=== PATIENT | female | born 1995 | race Caucasian/White ===

== ENCOUNTER 2020-03-21 11:28 | Inpatient (IN) ==
[2020-03-21] MEDS ORDERED: Famotidine 20 MG/2 ML VIAL IVP ONE (11:32)
[2020-03-21] MEDS ORDERED: Ringers Solution, Lactated 1,000 ML IVC ONE (11:32)
[2020-03-21] MEDS ORDERED: Metoclopramide 10 MG/2 ML VIAL IVP ONE (11:32)
[2020-03-21] MEDS ORDERED: Ringers Solution, Lactated 1,000 ML IVC SCH (11:45)
[2020-03-21 12:25] LABS: Amphetamine Screen,Urine Negative ng/mL (Cutoff=1000); Barbiturate Screen,Urine Negative ng/mL (Cutoff=200); Benzodiazepines Screen,Urine Negative ng/mL (Cutoff=200); Cannabinoid Screen,Urine Negative ng/mL (Cutoff = 50); Cocaine Screen,Urine Negative ng/mL (Cutoff= 300); Opiate Screen,Urine Negative ng/mL (Cutoff=300); Phencyclidine Screen,Urine Negative ng/mL (Cutoff=25)
[2020-03-21 12:39] LABS: Basophils # 0.1 K/mcL (0.0-0.2); Basophils % 0.5 %; Eosinophils # 0.1 K/mcL (0.0-0.6); Eosinophils % 0.9 %; Hematocrit 39.9 % (35.3-44.9); Immature Granulocytes % 0.4 % (0-4); Lymphocytes # 2.3 K/mcL (0.6-4.6); Lymphocytes % 22.6 %; Mean Corpuscular HGB Conc 32.6 g/dL (31.6-35.5); Mean Corpuscular Hemoglobin 26.5 pg (28.0-33.3); Mean Corpuscular Volume 81.4 fL (83.0-100.0); Mean Platelet Volume 11.2 fL (9.4-12.4); Monocytes # 0.7 K/mcL (0.0-1.3); Monocytes % 6.6 %; Neutrophils # 6.9 K/mcL (1.6-8.9); Platelet Count 337 K/mcL (140-400); Red Cell Distribution Width 13.3 % (11.5-14.5)
[2020-03-21] MEDS ORDERED: Clindamycin 900 MG/50 ML 900 MG/50 ML IV.SOLN IVPB SCH (13:00)
[2020-03-21] MEDS ORDERED: *HR* HYDROmorphone PF 0.5 MG/0.5 ML SYRINGE IVP PRN (13:17)
[2020-03-21] MEDS ORDERED: *HR* Promethazine 25 MG/ML VIAL IVP PRN (13:17)
[2020-03-21] MEDS ORDERED: *HR* Meperidine 25 MG/ML SYRINGE IVP PRN (13:17)
[2020-03-21] MEDS ORDERED: Ondansetron 4 MG/2 ML VIAL IVP PRN ×2 (13:17→16:18)
[2020-03-21] MEDS ORDERED: Naloxone 0.4 MG/ML INJ IVP PRN (13:17)
[2020-03-21] MEDS ORDERED: Metoclopramide 10 MG/2 ML VIAL IVP PRN (16:18)
[2020-03-21] MEDS ORDERED: Simethicone 80 MG TAB.CHEW PO PRN (16:18)
[2020-03-21] MEDS ORDERED: Oxytocin 20 units/ LR 1000 mL 20 UNIT/1,000 ML BAG IVC SCH (16:18)
[2020-03-21] MEDS ORDERED: *HR* OxyCODONE/APAP 5/325 TABLET PO PRN (16:18)
[2020-03-21] MEDS ORDERED: Sennosides 8.6 MG TABLET PO PRN (16:18)
[2020-03-21] MEDS: Ibuprofen 600 MG TABLET PO PRN ×2 (16:44→22:07)
[2020-03-21] MEDS: metroNIDAZOLE 500 MG TABLET PO SCH ×2 (16:44→20:13)
[2020-03-21] MEDS: CeFAZolin 2 GM/120 ML BAG IVPB SCH (20:13)
[2020-03-22] MEDS ORDERED: 0.9 % Sodium Chloride 1,000 ML ONE (05:12)
[2020-03-22] MEDS: CeFAZolin 2 GM/120 ML BAG IVPB SCH ×2 (05:16→13:53)
[2020-03-22] MEDS: Ibuprofen 600 MG TABLET PO PRN ×3 (05:20→20:45)
[2020-03-22 05:35] LABS: Basophils # 0.1 K/mcL (0.0-0.2); Basophils % 0.5 %; Eosinophils # 0.1 K/mcL (0.0-0.6); Eosinophils % 1.2 %; Hematocrit 33.6 % (35.3-44.9); Immature Granulocytes % 0.4 % (0-4); Lymphocytes # 2.4 K/mcL (0.6-4.6); Lymphocytes % 22.1 %; Mean Corpuscular HGB Conc 32.1 g/dL (31.6-35.5); Mean Corpuscular Hemoglobin 26.6 pg (28.0-33.3); Mean Corpuscular Volume 82.8 fL (83.0-100.0); Mean Platelet Volume 11.1 fL (9.4-12.4); Monocytes # 0.8 K/mcL (0.0-1.3); Monocytes % 7.6 %; Neutrophils # 7.4 K/mcL (1.6-8.9); Platelet Count 235 K/mcL (140-400); Red Blood Count 4.06 M/mcL (3.82-4.97); Red Cell Distribution Width 13.5 % (11.5-14.5); Segmented Neutrophils % 68.2 %; White Blood Count 10.9 K/mcL (4.3-11.1)
[2020-03-22 05:36] LABS: Hemoglobin 10.8 g/dL (11.5-15.4)
[2020-03-22] MEDS: metroNIDAZOLE 500 MG TABLET PO SCH ×3 (07:53→20:46)
[2020-03-22] MEDS: Prenatal Vit/FA 1 EACH TABLET PO SCH (07:53)
[2020-03-22] MEDS ORDERED: Rho Immune Globulin 1,500 UNIT SYRINGE IM ONE (11:22)
[2020-03-22] MEDS: Acetaminophen 325 MG TABLET PO PRN (18:25)
[2020-03-23] MEDS: Ibuprofen 600 MG TABLET PO PRN (04:39)
[2020-03-23] MEDS: metroNIDAZOLE 500 MG TABLET PO SCH (07:49)
[2020-03-23] MEDS: Prenatal Vit/FA 1 EACH TABLET PO SCH (07:49)
[2020-03-23 07:50] VITALS: BP 109/71
[2020-03-23] MEDS: Acetaminophen 325 MG TABLET PO PRN (07:52)
== END 2020-03-23 12:12 | disposition home or self-care (01) | DRG 788 ==
LOC: 1NENULAB 11:28 → 1NENUOBS 16:16
PROVIDERS: ADMIT Obstetrics & Gynecology; ATTEND Obstetrics & Gynecology